=== PATIENT | male | born 1975 | race Caucasian/White ===

== ENCOUNTER → 2018-04-29 | Outpatient (CLI) | payer OTHER | LOC: BMCIMAGING 09:24 | PROVIDERS: ATTEND Emergency Medicine | DX: I82.4Z1 Acute embolism and thrombosis of unspecified deep veins of right distal lower extremity (principal) ==

== ENCOUNTER 2018-05-01 17:15 | Emergency (ER) | payer OTHER ==
[2018-05-01 17:22] VITALS: BP 122/87
--- NOTE | 2018-05-01 17:53 | EDPHY ---
H & P Time Seen by Provider: 05/01/18 17:28 HPI/ROS: CHIEF COMPLAINT: Right calf pain, DVT HISTORY OF PRESENT ILLNESS: 42-year-old male presents to the emergency department concerns of right calf pain. The patient was seen at urgent care at [facility] 2 days ago and was diagnosed with DVT in the right peroneal vein. The patient was given options at the time starting oral Xarelto or warfarin or full-strength aspirin. The patient shows full-strength aspirin. Over last 2 days he has been doing his own research about this medication and DVTs. He was also concerned because he thought that his right calf was getting a bit more swollen. He denies any known trauma or injury. He denies pain in his chest or difficulty breathing. ROS: Denies pain in his knee or groin. Denies chest pain or difficulty breathing. Specifically denies pleuritic chest pain. Past Medical/Surgical History: DVT right perennial vein Social History: and lives in [place] Smoking Status: Never smoked Physical Exam: Examination of his right calf reveals just mild swelling noted to the anterior aspect of the right leg as well as distal calf. Minimally tender to palpate. No bony tenderness. No redness or signs of cellulitis or infection. Full range of motion of his right lower extremity. There is no lymphangitis. His lungs are clear to auscultation in all sharif with no wheezing, rhonchi or rales. Heart regular rate rhythm without murmur. Constitutional: Initial Vital Signs Temperature (C) 37.0 C 05/01/18 17:19 Heart Rate 88 05/01/18 17:19 Respiratory Rate 16 05/01/18 17:19 Blood Pressure 122/87 H 05/01/18 17:19 O2 Sat (%) 97 05/01/18 17:19 O2 Delivery Mode Room Air Allergies/Adverse Reactions: erythromycin base Allergy (Verified 05/01/18 17:17) Sulfa (Sulfonamide Antibiotics) Allergy (Verified 05/01/18 17:17) Home Medications: Medication Instructions Recorded Aspirin 325 mg (*) 05/01/18 Rivaroxaban [Xarelto 15mg (*)] 15 mg PO BID #42 tab 05/01/18 MDM/Departure - MDM Medications Given: Discontinued Medications Rivaroxaban (Xarelto) 15 mg PO EDNOW ONE Stop: 06/03/18 18:15 Last Admin: 05/01/18 18:20 Dose: 15 mg ED Course/Re-evaluation: I evaluated the patient's ultrasound from 2 days prior. Clinically I do not think this patient has a pulmonary embolism. He is not short of breath. He denies pleuritic chest pain. He is not hypoxic or tachycardic. Case was discussed with Dr. Flores, secondary supervising physician, who did not directly evaluate the patient but agrees with treatment and plan. Patient will be started on Xarelto 15 mg twice daily. He was given 21 day supply. He was encouraged to follow up with his primary care provider this week to recheck. He was instructed to return to the emergency department sooner if he developed shortness of breath or any other concerns. - Depart Disposition: Home, Routine, Self-Care Clinical Impression: Right leg DVT Qualifiers: Affected thrombotic vein of extremity: unspecified lower extremity distal vein Chronicity: acute Qualified Code(s): I82.4Z1 - Acute embolism and thrombosis of unspecified deep veins of right distal lower extremity Condition: Good Instructions: Deep Vein Thrombosis (ED) Additional Instructions: Xarelto 15mg twice daily as directed. Follow up as scheduled with Primary care provider on Wednesday. Avoid any activity that might put you at risk for head injury or possibly blunt abdominal trauma as discussed. Return to the emergency department if you feel short of breath, if you develop pain with breathing, or if you feel worse in any way. Prescriptions: Rivaroxaban [Xarelto 15mg (*)] 15 mg PO BID #42 tab Referrals: Carlyn Evans MD [Primary Care Provider] - As per Instructions (Follow-up as scheduled on Wednesday.)
[2018-05-01] MEDS ORDERED: RIVAROXABAN 15 MG TAB PO ONE (18:14)
== END 2018-05-01 18:23 | disposition home or self-care (01) ==
DX: I82.4Z1 Acute embolism and thrombosis of unspecified deep veins of right distal lower extremity (principal); Z79.82 Long term (current) use of aspirin

== ENCOUNTER → 2018-08-29 | Outpatient (CLI) | payer OTHER | LOC: BMCIMAGING 08:49 | PROVIDERS: ATTEND Family Medicine | DX: I82.492 Acute embolism and thrombosis of other specified deep vein of left lower extremity (principal) ==